=== PATIENT | female | born 1965 | race Caucasian/White ===

== ENCOUNTER 2018-07-30 15:53 | Outpatient (CLI) | payer BC | END 2018-07-30 15:54 | disposition home or self-care (01) | LOC: BICMAMMO 15:53 | PROVIDERS: ATTEND Obstetrics & Gynecology | DX: Z12.31 Encounter for screening mammogram for malignant neoplasm of breast (principal) | CPT/HCPCS: 77063; 77067 ==

== ENCOUNTER 2018-09-12 07:25 | Outpatient (CLI) | payer BC ==
[2018-09-12 10:30] LABS: Hemoglobin 15.4 g/dL (12.0-16.0); Mean Corpuscular HGB CONC 33.8 g/dL (32.0-36.0); Mean Corpuscular Hemoglobin 28.9 pg (27.0-31.0); Mean Corpuscular Volume 85.6 fL (78.0-98.0); Mean Platelet Volume 9.2 fL (7.4-10.4); Platelet Count 299 thou/uL (130-400); RBC Distribution Width 12.9 % (11.5-14.5); Red Blood Cell (RBC) Count 5.31 mill/uL (4.20-5.40); White Blood Cell (WBC) Count 10.8 thou/uL (4.8-10.8)
[2018-09-12 10:52] LABS: Anion Gap 14 mmol/L (10-20); BUN (Urea Nitrogen) 13 mg/dL (9.8-20.1); Calc. Creatinine Clearance 0 mL/min (70-130); Calcium 9.5 mg/dL (7.8-10.44); Carbon Dioxide 27 mmol/L (22-29); Chloride 100 mmol/L (98-107); Estimated GFR-MDRD 78; Glucose 87 mg/dL (70-105); Potassium 3.5 mmol/L (3.5-5.1); Sodium 137 mmol/L (136-145)
--- NOTE | 2018-09-12 20:51 | HP ---
She is scheduled for surgery on September 17, 2018. HISTORY OF PRESENT ILLNESS: Ms. Rice is a 52-year-old white female with history recurrent high-grade cervical dysplasia. She has had 2 previous LEEP procedures of the cervix for dysplasia and most recently had another abnormal Pap smear, which showed high-grade dysplasia. She underwent a colposcopic exam by Dr. Sonu Pink. It was satisfactory, which again showed her to have high-grade dysplasia in the endocervical biopsy with no invasive cancer seen. She also had an endometrial biopsy that showed some high-grade dysplasia at the upper canal. Due to this fact and her recurrence of the high-grade cervical dysplasia, she is desiring definitive surgical therapy. PAST MEDICAL AND SURGICAL HISTORY: Shows her to have had previous tubal ligation for surgery and also she reports that fractured leg in the past, which she developed a post fracture DVT, no recurrent DVT since then. She has chronic anxiety and depression. She also has hyperlipidemia. Mild chronic hypertension. CURRENT MEDICATIONS: 1. Fluoxetine 20 mg daily. 2. Hydrochlorothiazide 12.5 mg capsule daily. 3. Rosuvastatin 20 mg daily. 4. Vitamin D3. 5. She also uses p.r.n. Xanax 0.25 q.8 hours p.r.n. anxiety attacks. ALLERGIES: SHE HAS NO KNOWN DRUG ALLERGIES. SOCIAL HISTORY: She is an every day smoker . No excessive alcohol or drug abuse. FAMILY HISTORY: Mother and sister malignant tumor of the ovary. Diabetes in her mother and heart disease in her father. PHYSICAL EXAMINATION: VITAL SIGNS: Height is 5 feet 6 inches. Blood pressure was 140/70, weight 231, pulse 88, BMI 37.3 of respiratory rate 18. HEENT: Within normal limits. CHEST: Clear to auscultation. HEART: Regular rate and rhythm, S1 and S2 heart sounds. No murmurs, rubs, or gallops. ABDOMEN: Soft, nontender, and nondistended. No palpable masses. PELVIC: Vulva and vagina had no lesions. The cervix had no visible lesions. As noted, recent ECC showed high-grade cervical dysplasia. No ectocervical lesions seen on colposcopic exam. ASSESSMENT: A 52-year-old white female with 2 previous LEEP procedures of the cervix with recurrent cervical dysplasia. Smoking history. Maternal history of ovarian cancer at age 69. Plan is for definitive surgical therapy with robotic total laparoscopic hysterectomy bilateral salpingo-oophorectomy procedure scheduled for 09/17/2018. Risks and benefits of procedure have discussed in detail. We will also administer 40 mg of Lovenox prophylactically for approximately 2 weeks postop due to her previous deep venous thrombosis history of the lower extremity from a fracture. Job ID: [id number]
== END 2018-09-12 07:26 | disposition home or self-care (01) ==
LOC: LABBT 07:25
PROVIDERS: ATTEND Obstetrics & Gynecology
DX: Z01.812 Encounter for preprocedural laboratory examination (principal); R87.613 High grade squamous intraepithelial lesion on cytologic smear of cervix (HGSIL)
CPT/HCPCS: 80048; 85027; 86850; 86900; 86901

== ENCOUNTER 2018-09-17 07:46 | Day surgery (SDC) | payer BC ==
[2018-09-12 09:36] VITALS: BMI 36.6
--- NOTE | 2018-09-12 20:51 | HP ---
She is scheduled for surgery on September 17, 2018. HISTORY OF PRESENT ILLNESS: Ms. Rice is a 52-year-old white female with history recurrent high-grade cervical dysplasia. She has had 2 previous LEEP procedures of the cervix for dysplasia and most recently had another abnormal Pap smear, which showed high-grade dysplasia. She underwent a colposcopic exam by Dr. Sonu Pink. It was satisfactory, which again showed her to have high-grade dysplasia in the endocervical biopsy with no invasive cancer seen. She also had an endometrial biopsy that showed some high-grade dysplasia at the upper canal. Due to this fact and her recurrence of the high-grade cervical dysplasia, she is desiring definitive surgical therapy. PAST MEDICAL AND SURGICAL HISTORY: Shows her to have had previous tubal ligation for surgery and also she reports that fractured leg in the past, which she developed a post fracture DVT, no recurrent DVT since then. She has chronic anxiety and depression. She also has hyperlipidemia. Mild chronic hypertension. CURRENT MEDICATIONS: 1. Fluoxetine 20 mg daily. 2. Hydrochlorothiazide 12.5 mg capsule daily. 3. Rosuvastatin 20 mg daily. 4. Vitamin D3. 5. She also uses p.r.n. Xanax 0.25 q.8 hours p.r.n. anxiety attacks. ALLERGIES: SHE HAS NO KNOWN DRUG ALLERGIES. SOCIAL HISTORY: She is an every day smoker . No excessive alcohol or drug abuse. FAMILY HISTORY: Mother and sister malignant tumor of the ovary. Diabetes in her mother and heart disease in her father. PHYSICAL EXAMINATION: VITAL SIGNS: Height is 5 feet 6 inches. Blood pressure was 140/70, weight 231, pulse 88, BMI 37.3 of respiratory rate 18. HEENT: Within normal limits. CHEST: Clear to auscultation. HEART: Regular rate and rhythm, S1 and S2 heart sounds. No murmurs, rubs, or gallops. ABDOMEN: Soft, nontender, and nondistended. No palpable masses. PELVIC: Vulva and vagina had no lesions. The cervix had no visible lesions. As noted, recent ECC showed high-grade cervical dysplasia. No ectocervical lesions seen on colposcopic exam. ASSESSMENT: A 52-year-old white female with 2 previous LEEP procedures of the cervix with recurrent cervical dysplasia. Smoking history. Maternal history of ovarian cancer at age 69. Plan is for definitive surgical therapy with robotic total laparoscopic hysterectomy bilateral salpingo-oophorectomy procedure scheduled for 09/17/2018. Risks and benefits of procedure have discussed in detail. We will also administer 40 mg of Lovenox prophylactically for approximately 2 weeks postop due to her previous deep venous thrombosis history of the lower extremity from a fracture. Job ID: [id number]
[2018-09-17] MEDS ORDERED: CeleCOXIB 100 MG CAP ONE (08:47)
[2018-09-17] MEDS ORDERED: Gabapentin 300 MG CAP ONE (08:47)
[2018-09-17] MEDS ORDERED: CEFAZOLIN 2 GM/50 ML BAG ONE (08:48)
[2018-09-17] MEDS ORDERED: Famotidine/PF 20 mg/2ml Vial ONE (08:48)
[2018-09-17] MEDS ORDERED: Bupivacaine HCl 0.5%/Epinephrine 1:200,000/PF 30 ml Vial ONE (10:22)
[2018-09-17] MEDS ORDERED: Fentanyl 250 MCG/5 ML VIAL ONE (10:28)
[2018-09-17] MEDS ORDERED: Morphine 4 MG/ML VIAL SLOW IVP PRN (13:20)
[2018-09-17] MEDS ORDERED: Bisacodyl 10 MG SUPP PR PRN (13:20)
[2018-09-17] MEDS ORDERED: Ondansetron PF 4 MG/2 ML Vial IVP PRN (13:20)
[2018-09-17] MEDS ORDERED: Simethicone Chewable 80 MG TAB PO PRN (13:20)
[2018-09-17] MEDS ORDERED: Promethazine HCl 25 MG/ML VIAL IM PRN ×2 (13:20→13:39)
[2018-09-17] MEDS ORDERED: traMADol HCl 50 MG TAB PO PRN (13:20)
[2018-09-17] MEDS ORDERED: diphenhydrAMINE 25 MG CAP PO PRN (13:20)
[2018-09-17] MEDS ORDERED: Ondansetron HCl/PF 4 MG/2 ML Vial IVP PRN (13:39)
[2018-09-17] MEDS ORDERED: Promethazine HCl 25 MG/ML VIAL SLOW IVP PRN (13:39)
[2018-09-17] MEDS ORDERED: Fentanyl 100 MCG/2 ML VIAL ONE ×2 (14:00→14:49)
[2018-09-17] MEDS ORDERED: Ondansetron PF 4 MG/2 ML Vial ONE (14:27)
[2018-09-17] MEDS ORDERED: Dexamethasone 20 MG/5 ML VIAL ONE (14:27)
[2018-09-17] MEDS ORDERED: PROPOFOL 200 MG/20 ML VIAL ONE (14:27)
[2018-09-17] MEDS ORDERED: Lidocaine 1% PF 5 ML VIAL ONE (14:27)
[2018-09-17] MEDS ORDERED: Rocuronium Bromide 10 MG/ML (10ML VIAL) ONE (14:27)
[2018-09-17] MEDS ORDERED: Metoprolol Tartrate 5 MG/5 ML VIAL ONE (14:27)
[2018-09-17] MEDS: Ketorolac Tromethamine 30 MG/ML VIAL IVP SCH ×2 (16:35→23:00)
[2018-09-17] MEDS: Lactated Ringer's 1,000 ML IV SCH (17:29)
[2018-09-17] MEDS: Acetaminophen 1,000 MG in Premix Bag 1 BAG IVPB SCH ×2 (17:30→23:51)
--- NOTE | 2018-09-17 20:01 | OP ---
DATE OF PROCEDURE: 09/17/2018 PREOPERATIVE DIAGNOSES: 1. A 52-year-old white female with history of previous LEEP procedures x2 for high-grade dysplasia of the cervix. 2. Recurrence of high-grade cervical dysplasia. 3. Uterine fibroids. POSTOPERATIVE DIAGNOSES: 1. A 52-year-old white female with history of previous LEEP procedures x2 for high-grade dysplasia of the cervix. 2. Recurrence of high-grade cervical dysplasia. 3. Uterine fibroids. PROCEDURES PERFORMED: Robotic total laparoscopic hysterectomy and bilateral salpingo-oophorectomy. TABLEAU DEVELOPER SURGEON: Rafael Hawkins DO MS ANESTHESIA: General endotracheal. ESTIMATED BLOOD LOSS: 100 mL. COMPLICATIONS: None. COUNTS: Correct x2. ANTIBIOTICS: 2 g Ancef on-call to OR. PATHOLOGY: Uterus, cervix, bilateral tubes, and ovaries. FINDINGS: 1. Normal-appearing fallopian tubes and ovaries. 2. Uterus was approximately 10 week size with several intramural uterine fibroids. 3. No gross abnormality of the cervix is visibly noted on initial exam under anesthesia. 4. Clear urine present in Leal catheter postprocedure and bladder was watertight to distention, about 300 mL postprocedure. DISPOSITION: Recovery room, stable. DESCRIPTION OF PROCEDURE: The patient previously received informed consent in regard to surgery. She was taken back to the operating room, where she received a general endotracheal anesthetic agent without complications. She was placed in the dorsal lithotomy position with use of Hayes stirrups and prepped and draped in usual sterile fashion. At this time, a side-arm speculum was placed in the vagina. The uterus sounded to 9 cm. Size 8 cm EMILIO uterine manipulator with a 4.0 cm cervical cup was then fitted in the usual fashion. Tenaculum and speculum were then removed. Attention was then turned to the abdomen, where perspective trocar sites were infiltrated with 0.5% Marcaine with epinephrine. A 12 mm supraumbilical incision was made and the Veress needle was entered in the peritoneal cavity. The patient's pressure was noted to be less than 5 mm. The abdomen was insufflated. The patient's pressure of 15, approximately 4.5 L of carbon dioxide gas. Then the Veress needle was removed and a 12 mm trocar was placed centered from both supraumbilical incision. The robotic laparoscope was introduced through the trocar sleeve confirming proper entry. Additional bilateral lower quadrant 8 mm trocars were placed along with an 11 mm right upper quadrant judicial assistant port. Robot was then docked after the patient was placed in Trendelenburg. I proceeded to carry out the surgery from the operative console while my judicial assistant remained at the bedside. The uterus was then elevated from the pelvis with the previously mentioned findings. The left fallopian tube was grasped by my judicial assistant and the left IP ligament was identified and was coagulated with bipolar fenestrated cautery and transected. Serial coagulation of the broad ligament hugging close to the uterine specimen was carried down to the left round ligament was reached. It was coagulated and then transected with monopolar scissors. The anterior leaflet of the uterus was then entered and in the bladder, began to be dissected sharply in a layering technique past the cervical vaginal angle. Thus uterine fibroid was some in the posterior and lateral on the uterus at this point, and I carefully dissected in a layering technique opening up the retroperitoneal space and pushing the uterus away from the lateral sidewall to the midline, dissecting this plane peritoneum freeing the lateral pelvic sidewall from the fibroid specimen. This allowed for isolation, skeletonization of the uterine vessels, which were coagulated at the internal cervical os region. This was repeated in likewise fashion on the patient's right side, where again the right IP ligament was identified. It was coagulated with bipolar fenestrated cautery and then the IP ligament was then transected. Serial coagulation and transection of the broad ligament hugging close to uterine specimen again was carried out to the right round ligament was reached. It was coagulated and transected. Anterior leaf of the broad ligament was entered. The vesicouterine peritoneum again was incised in a layering technique dissecting the bladder atraumatically past the cervical vaginal angle was delineated by the uterine manipulator cup. We intermittently distended the bladder during this process to identify the exact whereabouts of the bladder while we did the dissection. Again, there was also a fibroid on this side, where we again dissected the retroperitoneum and peritoneum off the sidewall away from the fibroid specimen freeing the lateral sidewall and noting the course of the ureter away from the surgical specimen. Again, the uterine vessels were skeletonized and they were coagulated internal cervical os region. We were then able to further skeletonize the vessels going further down towards the cervical vaginal region prior to the performance of the anterior colpotomy. The anterior colpotomy was created starting the 12 o'clock to 3 o'clock and 12 o'clock to 9 o'clock in the vessels again were secured and tied inside the cut on the ring coagulating these. The posterior colpotomy was then completed from 6 o'clock to 3 o'clock and 6 o'clock to 9 o'clock, this allowed for freeing of the uterine specimen. The uterine specimen was then brought into the vaginal vault. The vaginal cuff was then elevated in time by the bipolar fenestrated cautery and steven needle stake driver that had been switched out for the monopolar scissors. The vaginal cuff was cauterized any areas of bleeding prior to the vaginal cuff closure. The STRATAFIX was brought in then by my judicial assistant, and the vaginal cuff was closed starting at the right angle full-thickness closures to the left angle back towards the midline. Good hemostasis was assured. Once this had been completed, the pedicles were irrigated and hemostasis was confirmed. There has been some oozing in certain areas and then Tisseel had been thawed out and this was placed for added hemostasis coverage. This was spread out through the pelvic sidewall, pedicle sites, and the vaginal cuff site with good hemostasis confirmation. The surgery was completed and the robot was undocked. Trocar sleeves were removed. The trocar sites were closed with a deep stitch of 0 Vicryl in the supraumbilical region and then the 4-0 Monocryl subcuticular with Dermabond. The vaginal cuff was then inspected with a sponge stick and hemostasis vaginally was confirmed. The patient was awakened from anesthesia and transferred to recovery room in stable condition. Job ID: [id number]
[2018-09-17] MEDS: traMADol HCl 50 MG TAB PO PRN (21:05)
[2018-09-18] MEDS: Lactated Ringer's 1,000 ML IV SCH (03:07)
[2018-09-18] MEDS: Ketorolac Tromethamine 30 MG/ML VIAL IVP SCH (05:53)
[2018-09-18] MEDS: Acetaminophen 1,000 MG in Premix Bag 1 BAG IVPB SCH (06:07)
[2018-09-18 06:14] LABS: Hemoglobin 12.4 g/dL (12.0-16.0); Mean Corpuscular HGB CONC 33.6 g/dL (32.0-36.0); Mean Corpuscular Volume 86.1 fL (78.0-98.0); Mean Platelet Volume 9.3 fL (7.4-10.4); Platelet Count 252 thou/uL (130-400); RBC Distribution Width 12.7 % (11.5-14.5); Red Blood Cell (RBC) Count 4.26 mill/uL (4.20-5.40); White Blood Cell (WBC) Count 14.3 thou/uL (4.8-10.8)
[2018-09-18 08:08] VITALS: BP 140/72; TEMP 98.2
[2018-09-18] MEDS: traMADol HCl 50 MG TAB PO PRN (10:20)
--- NOTE | 2018-09-19 02:05 | DIS ---
DATE OF ADMISSION: 09/17/2018 DATE OF DISCHARGE: 09/18/2018 DIAGNOSES: 1. Recurrent high-grade cervical dysplasia. 2. Uterine fibroids. 3. Tobacco usage. PROCEDURES PERFORMED: Robotic total laparoscopic hysterectomy and bilateral salpingo-oophorectomy. SUMMARY HOSPITAL COURSE: Ms. Rice is a 52-year-old white female with prior LEEP of the cervix x2 for high-grade cervical dysplasia. She had recurrence of her high-grade cervical dysplasia and desired definitive surgical therapy. She underwent a robotic TLH BSO on 09/17. She was noted to have uterine fibroids also at the time of surgery. Pathology from the specimen was pending at the time of discharge. Postoperatively, the patient has done well. Vital signs are stable. She is ambulating, voiding, tolerating diet and has good pain control this morning. Her hematocrit postop was 36.7%. She was discharged on postop day #1 and has a followup scheduled 2 weeks and 6 weeks. Pathology will be followed up in the next few days when available. DISCHARGE MEDICATIONS: 1. Tramadol 50 mg q.6 hours p.r.n. pain. 2. [id number] ibuprofen as directed. 3. She is also instructed to use Lovenox 40 mg subcu daily x14 days due to her prior history of DVT post fracture in her left leg. Job ID: [id number]
[2018-09-23] MEDS ORDERED: Ibuprofen 800 MG TAB PO SCH (09:00)
== END 2018-09-18 11:00 | disposition home or self-care (01) ==
LOC: SDC 07:46 → EDSTATUS 09:00 → 3SE 15:25 → SDC 09-18 11:00
PROVIDERS: ATTEND Obstetrics & Gynecology
PROC: 0UT74ZZ Resection of Bilateral Fallopian Tubes, Percutaneous Endoscopic Approach (ICD-10-PCS; principal; 2018-09-18)
PROC: 0UT24ZZ Resection of Bilateral Ovaries, Percutaneous Endoscopic Approach (ICD-10-PCS; principal; 2018-09-18)
PROC: 0UT94ZZ Resection of Uterus, Percutaneous Endoscopic Approach (ICD-10-PCS; principal; 2018-09-18)
DX: D25.1 Intramural leiomyoma of uterus (principal); N80.0 Endometriosis of uterus; N72 Inflammatory disease of cervix uteri; R87.613 High grade squamous intraepithelial lesion on cytologic smear of cervix (HGSIL); N73.6 Female pelvic peritoneal adhesions (postinfective); N83.292 Other ovarian cyst, left side; N83.291 Other ovarian cyst, right side; I10 Essential (primary) hypertension; E78.5 Hyperlipidemia, unspecified; F32.9 Major depressive disorder, single episode, unspecified; F41.9 Anxiety disorder, unspecified; F17.200 Nicotine dependence, unspecified, uncomplicated; Z86.718 Personal history of other venous thrombosis and embolism; Z79.899 Other long term (current) drug therapy
CPT/HCPCS: 36415; 85027; 88307; J0131; J0670; J1100; J1885; J2001; J2405; J2704; J3010; S0028

== ENCOUNTER 2019-01-14 14:09 | Emergency (ER) | payer BC ==
--- NOTE | 2019-01-14 16:42 | ULT ---
EXAM: Left lower extremity venous Doppler HISTORY: left lower extremity edema and pain. Fall. Pain. Injury. FINDINGS: Grayscale, color-flow, Doppler evaluation, spectral analysis of the left lower extremity venous struc tures is performed with 2-D imaging. The left common femoral, superficial femoral, popliteal, posterior tibial, proximal greater saphenous and profunda femoral veins are imaged. There is normal luminal compressibility, flow, and augmentation the visualized deep venous structures of the left lower extremity. IMPRESSION: No evidence of a deep vein thrombosis in the visualized deep venous structures left lower extremity.
== END 2019-01-14 17:15 | disposition home or self-care (01) ==
LOC: ERS 14:09
DX: M79.89 Other specified soft tissue disorders (principal); I10 Essential (primary) hypertension; F41.9 Anxiety disorder, unspecified; F17.210 Nicotine dependence, cigarettes, uncomplicated; E78.5 Hyperlipidemia, unspecified; Z79.899 Other long term (current) drug therapy; Z86.718 Personal history of other venous thrombosis and embolism; W18.30XA Fall on same level, unspecified, initial encounter